=== PATIENT | male | born 2000 | race African-American/Black ===

== ENCOUNTER 2022-06-17 22:27 | Emergency (ER) | payer MEDICAID ==
[~2022-06-17] VITALS: Ht 172.7 cm; Wt 90.7 kg
[2022-06-17 23:04] VITALS: BP_SYST 123
--- NOTE | 2022-06-17 23:11 | NUR ---
ER at bedside examining patient.
[2022-06-17] MEDS ORDERED: NACL 0.9% 1,000 ML IV ONE (23:15)
[2022-06-17] MEDS ORDERED: ONDANSETRON HCL 4 MG/2 ML VIAL IVP ONE (23:15)
[2022-06-18] MEDS ORDERED: FAMOTIDINE PF 20 MG/2 ML VIAL IVP ONE (00:15)
[2022-06-18 00:18] LABS: HEMOGLOBIN 14.5 g/dL (14.0-18.0); RED CELL DISTRIBUTION WIDTH 13.4 % (9.0-15.0)
[2022-06-18 00:22] LABS: BASOPHILS % (AUTO) 0.3 % (0.0-2.0); EOSINOPHILS # (AUTO) 0.2 K/uL (0.0-0.4); EOSINOPHILS % (AUTO) 1.6 % (0.0-4.0); HEMATOCRIT 41.1 % (36-54); LYMPHOCYTES # (AUTO) 1.9 K/uL (1.0-5.5); LYMPHOCYTES % (AUTO) 17.9 % (20.5-51.5); MEAN CORPUSCULAR HEMOGLOBIN 30 pg (27-31); MEAN CORPUSCULAR HGB CONC 35 % (32-36); MEAN CORPUSCULAR VOLUME 84 fL (79.0-98.0); MONOCYTES # (AUTO) 1.1 K/uL (0.0-1.0); NEUTROPHILS # (AUTO) 7.5 K/uL (1.8-7.7); NEUTROPHILS % (AUTO) 70.2 % (40.0-70.0); PLATELET COUNT (AUTO) 232 K/uL (130-430); WHITE BLOOD COUNT (AUTO) 10.8 K/uL (4.8-10.8)
[2022-06-18 00:24] LABS: CALCIUM 9.4 mg/dL (8.4-11.0); CREATININE 1.02 mg/dL (0.55-1.30)
[2022-06-18 00:29] LABS: ALBUMIN 4.1 g/dL (3.4-4.8); TOTAL BILIRUBIN 0.7 mg/dL (0.0-1.0)
[2022-06-18] MEDS ORDERED: ONDA-8 TL (01:43)
[2022-06-18] MEDS ORDERED: POTASSIUM CHLORIDE 20 MEQ TAB.PRT.SR PO ONE (01:45)
[2022-06-18] MEDS ORDERED: ONDANSETRON 4 MG ODT TAB PO ONE (02:00)
--- NOTE | 2022-06-18 03:20 | NUR ---
IN ED FOR NUSEA AND VOMMITING,SEEN AND ASSESSED BY MD, MEDICATED ORDERED, PATIENT D/C HOME AT 0300 06/18/22PATIENT STABLE. DENIES N&V, V/S STABLE ; SEE VITAL SIGN DOCUMENTATION
[2022-06-18 06:10] VITALS: BP_SYST 130
== END 2022-06-18 06:10 | disposition home or self-care (01) ==
LOC: SED 22:27
DX: R10.12 Left upper quadrant pain (principal); E87.6 Hypokalemia; R11.2 Nausea with vomiting, unspecified; Z79.899 Other long term (current) drug therapy
CPT/HCPCS: 99284; 80053; 83690; 85025; 36415; 96374; 96361; 96375; J2405; Q0162; J3490; J7030